=== PATIENT | male | born 1970 | race Caucasian/White ===

== ENCOUNTER 2019-06-10 14:35 | Outpatient (REF) | payer MEDICARE, SELFPAY ==
[2019-06-10 21:33] LABS: ALT 19 U/L (16-63); AST 13 U/L (15-37); Alkaline Phosphatase 90 U/L (46-116); Anion Gap 6.5 mmol/L (3-11); BUN 13 mg/dL (7-18); Bilirubin, Total 0.4 mg/dL (0.2-1.0); CO2 30.5 mmol/L (21.0-32.0); CREATININE 1.01 mg/dL (0.70-1.30); Calcium 9.2 mg/dL (8.5-10.1); Chloride 104 mmol/L (98-107); Glucose 88 mg/dL (74-106); Potassium 4.4 mmol/L (3.5-5.1); Sodium 141 mmol/L (136-145); Total Protein 7.1 g/dL (6.4-8.2)
== END 2019-06-10 14:55 ==
LOC: NCHCN 14:35
PROVIDERS: Visit Provider Internal Medicine
DX: R03.0 Elevated blood-pressure reading, without diagnosis of hypertension (principal)
CPT/HCPCS: 80053

== ENCOUNTER 2020-04-21 17:44 | Outpatient (REF) | payer MEDICARE, SELFPAY | END 2020-04-21 18:04 | LOC: NCHCN 17:44 | PROVIDERS: Visit Provider Nurse Practitioner Family | DX: R05 Cough (principal) | CPT/HCPCS: U0003 ==

== ENCOUNTER 2020-04-28 14:21 | Outpatient (REF) | payer MEDICARE, SELFPAY ==
[2020-05-03 10:53] LABS: Patient Race White; SARS-CoV-2 RNA Undetected (Undetected); SARS-CoV-2 Specimen Source Nasal
== END 2020-04-28 14:41 ==
LOC: NCHCN 14:21
PROVIDERS: PCP Internal Medicine; Visit Provider Internal Medicine
DX: R05 Cough (principal)
CPT/HCPCS: U0003

== ENCOUNTER 2020-06-02 20:19 | Outpatient (REF) | payer MEDICARE, SELFPAY ==
--- OUTSIDE RECORDS SUMMARY | 2020-06-02 20:22 | XMS_ITS ---
:1970 Author Care Team Providers Name Role Phone FAUZIA ENGLE MD Textile Stylist Unavailable Allergies Code Code System Name Reaction Severity Status Onset Latex, Itching ? Active ? Natural Rubber [id number] RxNorm Nickel Rash ? Active ? Notes: propylene stitches Medications Name Status Start Date Stop Date ? ? alfuzosin ER 10 mg tablet,extended Active ? Not available release 24 hr amoxicillin 875 mg-potassium Completed ? 05/2019 clavulanate 125 mg tablet cephalexin 500 mg capsule Completed ? 2018 GaviLyte-G 236 gram-22.74 gram-6.74 Active ? Not available gram-5.86 gram oral solution levofloxacin 500 mg tablet Completed ? 03/18 1 (one) Tablet: daily levofloxacin 750 mg tablet Completed ? 01/28 Narcan 4 mg/actuation nasal spray Active ? Not available promethazine 25 mg tablet Active ? Not av ailable simvastatin 40 mg tablet Active ? Not tiara ilable tamsulosin 0.4 mg capsule Active ? Not av ailable triamcinolone acetonide 0.5 % topical Active ? Not available cream zolpidem 10 mg tablet Active ? Not availa ble Problems Name Status Onset Date Source ? Tomography - Chest Abnormal Active 03/18/2019 ? Tobacco Dependence Syndrome Active ? Hist ory Placentography Abnormal Unknown ? History Procedure by Method Unknown ? History Procedures Date Name Performed by ? 11/17/2004 Hernia Repair Information not avai lable 03/26/2018 CT, Chest, W/o Contrast [facility] (Internal) [address] [place] [address] (Work [address]) 01/28/2019 CT, Chest, W/o Contrast [facility] (Internal) [address] [place] [address] (Work [address]) 01/28/2019 CT, Chest, W/o Contrast [facility] (Internal) [address] [place] [address] ([address]) 03/18/2019 CT, Chest, W/o Contrast [facility] (Internal) [address] [place] [address] ([address] (Work Place) 03/18/2019 CT, Chest, W/o Contrast [facility] (Internal) [address] [place] [address] (Work [address]) Results Lab Results None recorded. Past Encounters 03/18/2020 Tobacco Dependence Syndrome; Tomography - Chest Abnormal Fauzia Egnle MD: [address] [place] [address], Ph. 03/18/2019 Tomography - Chest Abnormal Fauzia Engle MD: [address] [place] [address], Ph. 01/28/2019 Tomography - Chest Abnormal Fauzia Engle MD: [address] [place] [address], Ph. Social History Tobacco Smoking Status Former Smoker Notes: quit Vaccine List Vaccine Type influenza, injectable, quadrivalent 03/19/2018 influenza, injectable, quadrivalent, pre servative free 03/18/2020 Plan of Care Reminders Provider Appointments None ? ? recorded. Lab None ? ? recorded. Referral None ? ? recorded. Procedures None ? ? recorded. Surgeries None ? ? recorded. Imaging None ? ? recorded. Vitals 03/18/2020 03:00PM Follow Up 30 Weight Blood Pressure 104 kg 128/82 mm[Hg] 03/18/2019 03:30PM Follow Up 30 Height Weight BMI Blood Pressure 187.96 cm 106.2 kg 30.1 kg/m2 114/73 mm[Hg] 01/28/2019 02:00PM Follow Up 30 Height Weight BMI Blood Pressure 187.96 cm 104.4 kg 29.6 kg/m2 134/84 mm[Hg] 03/26/2018 03:00PM Follow Up 30 Height Weight BMI Blood Pressure 187.96 cm 99 kg 28 kg/m2 140/80 mm[Hg] 08/23/2017 Height Weight Blood Pressure 187.96 cm 110.68 kg 130/70 mm[Hg] 08/09/2017 Height Weight Blood Pressure 187.96 cm 109.77 kg 110/80 mm[Hg]
--- OUTSIDE RECORDS SUMMARY | 2020-06-02 20:22 | XMS_ITS | Encounter Summary ---
:1970 Author Care Team Providers Name Role Phone Fauzia Engle MD Pediatric Genetic Counselor Unavailable Reason for Visit imaging follow up Assessment and Plan 1. Tobacco dependence syndrome Complete and immediate smoking cessation is recommended and discussed. He already has nicotine patches and lozenge s and will get started soon.More than 3 minutes was spent on this topic ? Fluarix Quad [id number] (PF ) 60 mcg (15 mcg x 4)/0.5 mL IM syringe 2. Tomography - chest abnormal The previously seen horseshoe- shaped right upper lobe nodular density is stable in size. This has been now followed for almost 3 years. Likely this is part of the previous scar from the pneumo ishmael. This, per se, does not need further follow-up. Thankfully now he is smoke-free. He should stop vaping as well. He has a strong family history of early age lung cancer. Previous large spiculated mass in the ri ght lower lobe with central cavitation was likely related to an infection or stomach acid aspiration, and by now has completely resolved. Acid reflux treatment conservative measu res were discussed in detail with the patient and his , including avoiding acid a food altogether, not eating or drinking at least 1 to 2 hours before bedtime anything, continuing with his Prevacid twice a day, propping up his upper torso 30 to 45 degrees in bed, avoiding carbonated beverages and alcoholic beverages altogether. Continue smoking cessation is recommende d He will get his flu shot here today. Once he turns 53, we will evaluate him f or possibly qualify for low-dose CT screening for lung cancer. Discussion Note More than 25 minutes were spent wit h the patient , more than 50% of the time counselingj Patient educational handouts: No information available. Plan of Care Reminders Provider Appointments None ? ? recorded. Lab None ? ? recorded. Referral None ? ? recorded. Procedures None ? ? recorded. Surgeries None ? ? recorded. Imaging None ? ? recorded. Medications Name Start Date ? ? alfuzosin ER 10 mg tablet,extended release 24 hr ? GaviLyte-G 236 gram-22.74 gram-6.74 gram-5.86 gram ora l solution ? Narcan 4 mg/actuation nasal spray ? promethazine 25 mg tablet ? simvastatin 40 mg tablet ? tamsulosin 0.4 mg capsule ? triamcinolone acetonide 0.5 % topical cream ? zolpidem 10 mg tablet ? Medications Administered None recorded. Vitals Weight Blood Pressure 104 kg 128/82 mm[Hg] Results Lab Results None recorded. Allergies Code Code System Name Reaction Severity Onset Latex, Natural Itching ? ? Rubber [id number] RxNorm Nickel Rash ? ? Notes: propylene stitches Problems Name Status Onset Date Source ? Tomography - Chest Abnormal Active 03/18/2019 ? Tobacco Dependence Syndrome Active ? Hist ory Procedures Date Name Performed by ? 11/17/2004 Hernia Repair Information not avai lable Vaccine List Vaccine Type influenza, injectable, quadrivalent 03/19/2018 influenza, injectable, quadrivalent, pre servative free 03/18/2020 Social History Tobacco Smoking Status Former Smoker Notes: quit Exposure to Asbestos Y Exposure to Chemicals or Toxins N Tobacco Use Former smoker Pets? Y Notes: 1 cat, 3 d ogs Blind or serious difficulty seeing N Language Difficulties No Notes: [place] Citizen Smoking - patient's current pack 30ormorepackyears years? Deaf or serious difficulty hearing N Most Recent Tobacco Use Screening 03/26/2018 Advance directive N Exposure to Silica N Tobacco-years of use 19 Notes: smoked tw o packs per day, recently down t o 1/2 ppd Family History Relation Problem Onset Age of Age Notes Father No current problems (No Information) N/A (No Notes) or disability Mother No current problems (No Information) N/A (No Notes) or disability Functional Status No Impairment. Past Encounters 03/18/2020 Tobacco Dependence Syndrome; Tomography - Chest Abnormal Fauzia Engle MD: [address] [place] [address], Ph. History of Present Illness Note: <p>Patient is a 49-year-old man who comes in for follow up on chest CT scan that was done earlier today. This was done to follow-up on a large spiculated mass in the right lower lobe on 01/28/2019. After that, he was treated with Levaquin and has had his symptomatic GERD under much better cont rol. He takes Prevacid.</p><p>
</p><p>Follow-up chest CT on 03/18/2019 showed only minimal groundglass opacity with a slight solid core in the place of the previous cavitary mass. He now had a one-year follow-up CT.
</p><p>He is doing very well. He is remaining smoke-free but he is vaping weed. He is making his own vape juice and growing his own weight.
</p><p>He has no fevers or chills, no weight loss or loss of appetite.</p><p>He would like to get the flu shot today
</p><p>
</p><p>He got sick over 2016 with fevers, chills, coughing with bloody sputu m. He was treated with Augmentin for 5 days. Chest x-ray showed right middle lobe infiltrate. He had, at that time, marked shortness of breath and wheezing. He got better after the antibiotics.</p><p>At [place] time, 2016 he had a bad sinus infection and was treated with another 5 days of Augmentin. Since then, clinically he has been doing well, no coughing, no fevers, no chills, no shortness of breath, no night sweats.</p><p>
</p><p>No other new complai nts.</p><p>
</p><p>Social history: He vapes pot.
</p><p>He quit smoking in March,. Before that, he smoked for a year, prior to that, he quit for 10 years. He has a 21 pack- year smoking history. 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 This was done under a jaquez with fairly good ventilation. This went on for 7 years. 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 He then worked at [employer]& lt;/p><p>
</p><p>family history: Very strong history of lung cancer. His father at age 56 and grandfather in his 60s of lung cancer. They were both smokers.</p> Review of Systems ? Notes: <p>As above
</p> Physical Exam ? Notes: <p>Middle-aged man in no acu te distress</p><p>chest: bilateral air entry, with clear breath sounds, no crep itation, crackles, wheezes.</p><p>Heart, S1, S2 normal</p><p>Neuro; A/O x 3</p><p>Extremities: No edema, clubbing, cyanosis
</p>
[2020-06-02 21:23] LABS: Anion Gap 10.3 mmol/L (3-11); BUN 15 mg/dL (7-18); CO2 26.7 mmol/L (21.0-32.0); CREATININE 1.13 mg/dL (0.70-1.30); Calcium 8.8 mg/dL (8.5-10.1); Chloride 105 mmol/L (98-107); Glucose 112 mg/dL (74-106); Potassium 4.3 mmol/L (3.5-5.1); Sodium 142 mmol/L (136-145)
== END 2020-06-02 20:39 ==
LOC: NCHCN 20:19
PROVIDERS: PCP Internal Medicine; Visit Provider Internal Medicine
DX: I10 Essential (primary) hypertension (principal)
CPT/HCPCS: 80048

== ENCOUNTER 2021-04-22 22:14 | Outpatient (REF) | payer MEDICARE, SELFPAY ==
[2021-04-22 21:54] LABS: BUN 21 mg/dL (7-18); CREATININE 1.1 mg/dL (0.70-1.30)
== END 2021-04-22 22:15 | disposition home or self-care (01) ==
LOC: NCHCN 22:14
PROVIDERS: PCP Internal Medicine; Visit Provider Internal Medicine
DX: M54.59 Other low back pain (principal)
CPT/HCPCS: 84520; 82565

== ENCOUNTER 2022-07-22 13:41 | Outpatient (REF) | payer MEDICARE, SELFPAY ==
[2022-07-22 14:38] LABS: ALT 33 U/L (16-63); AST 24 U/L (15-37); Alkaline Phosphatase 106 U/L (46-116); Anion Gap 6.4 mmol/L (3-11); BUN 14 mg/dL (7-18); Bilirubin, Total 0.4 mg/dL (0.2-1.0); CO2 29.6 mmol/L (21.0-32.0); CREATININE 1.1 mg/dL (0.70-1.30); Calcium 9.3 mg/dL (8.5-10.1); Chloride 104 mmol/L (98-107); Estimated GFR 79.77 (mL/min/1.73m2); Glucose 118 mg/dL (74-106); Potassium 4.5 mmol/L (3.5-5.1); Sodium 140 mmol/L (136-145); Total Protein 7.5 g/dL (6.4-8.2)
== END 2022-07-22 13:42 | disposition home or self-care (01) ==
LOC: NCHCN 13:41
PROVIDERS: PCP Internal Medicine; Visit Provider Internal Medicine
DX: I10 Essential (primary) hypertension (principal); E78.5 Hyperlipidemia, unspecified; Z01.818 Encounter for other preprocedural examination
CPT/HCPCS: 80053

== ENCOUNTER 2022-10-12 23:21 | Outpatient (REF) | payer MEDICARE, SELFPAY ==
[2022-10-12 22:11] LABS: HCT 49.2 % (40.0-50.0); HGB 16.6 g/dL (13.5-17.5); MCH 30.6 pg (27.0-33.0); MCHC 33.7 % (32.0-36.0); MCV 91 fL (80-95); Platelet Count 307 10^3/uL (130-400); RBC 5.43 10^6/uL (4.36-5.78); RDW 12.9 % (11.8-14.1); RDW-SD 42.8 fL; WBC 7.73 10^3/uL (4.4-10.8)
[2022-10-12 23:38] LABS: Ferritin 109 ng/mL (26-388); Vitamin B12 418 pg/mL (193-986)
[2022-10-14 08:50] LABS: Lyme Ab w Rflx to Lyme Confirm Negative (Negative)
== END 2022-10-12 23:22 | disposition home or self-care (01) ==
LOC: NCHCN 23:21
PROVIDERS: PCP Internal Medicine; Visit Provider Internal Medicine
DX: R73.03 Prediabetes (principal); R53.83 Other fatigue; G47.61 Periodic limb movement disorder
CPT/HCPCS: 85027; 82607; 82728; 83735; 86618

== ENCOUNTER 2023-07-21 15:09 | Outpatient (REF) | payer MEDICARE, SELFPAY ==
[2023-07-21 14:26] LABS: Bilirubin Negative (Negative); Blood Negative (Negative); Clarity Clear (Clear); Glucose Negative (Negative); Ketones Negative (Negative); Leukocyte Esterase Negative (Negative); Nitrite Negative (Negative); Urobilinogen 0.2 mg/dL (Up to 0.2)
[2023-07-21 14:27] LABS: HCT 44.4 % (40.0-50.0); HGB 14.8 g/dL (13.5-17.5); MCH 30.5 pg (27.0-33.0); MCHC 33.3 % (32.0-36.0); MCV 92 fL (80-95); MPV 9.5 fL (8.0-11.0); Platelet Count 316 10^3/uL (130-400); RBC 4.85 10^6/uL (4.36-5.78); RDW 13.5 % (11.8-14.1); RDW-SD 46.1 fL; WBC 6.71 10^3/uL (4.4-10.8)
[2023-07-21 14:45] LABS: ALT 29 U/L (16-63); AST 21 U/L (15-37); Albumin 3.7 g/dL (3.4-5.0); Alkaline Phosphatase 81 U/L (46-116); Anion Gap 5.4 mmol/L (3-11); BUN 16 mg/dL (7-18); Bilirubin, Total 0.4 mg/dL (0.2-1.0); CO2 29.6 mmol/L (21.0-32.0); Calcium 9.4 mg/dL (8.5-10.1); Chloride 104 mmol/L (98-107); Estimated GFR 88.88 (mL/min/1.73m2); Glucose 102 mg/dL (74-106); Potassium 4.8 mmol/L (3.5-5.1); Sodium 139 mmol/L (136-145); Total Protein 7.4 g/dL (6.4-8.2)
[2023-07-21 15:04] LABS: Hemoglobin A1C 5.6 % (<5.7)
== END 2023-07-21 15:10 | disposition home or self-care (01) ==
LOC: NCHCN 15:09
PROVIDERS: PCP Internal Medicine; Visit Provider Internal Medicine
DX: R03.0 Elevated blood-pressure reading, without diagnosis of hypertension (principal); R73.03 Prediabetes; M40.36 Flatback syndrome, lumbar region; Z01.818 Encounter for other preprocedural examination; Z01.812 Encounter for preprocedural laboratory examination
CPT/HCPCS: 80053; 85027; 81003; 83036

== ENCOUNTER 2023-08-28 16:05 | Outpatient (REF) | payer MEDICARE, SELFPAY ==
[2023-08-28 18:19] LABS: HCT 33.3 % (40.0-50.0); MCV 90 fL (80-95); MPV 8.7 fL (8.0-11.0); RBC 3.71 10^6/uL (4.36-5.78); RDW-SD 58.9 fL; WBC 13.48 10^3/uL (4.4-10.8)
[2023-08-28 18:33] LABS: ALT 25 U/L (16-63); AST 13 U/L (15-37); Albumin 2.8 g/dL (3.4-5.0); Alkaline Phosphatase 249 U/L (46-116); Anion Gap 7.4 mmol/L (3-11); BUN 16 mg/dL (7-18); Bilirubin, Total 0.2 mg/dL (0.2-1.0); CO2 30.6 mmol/L (21.0-32.0); CREATININE 0.9 mg/dL (0.70-1.30); Calcium 9.5 mg/dL (8.5-10.1); Chloride 102 mmol/L (98-107); Estimated GFR 100.86 (mL/min/1.73m2); Glucose 110 mg/dL (74-106); Potassium 5.2 mmol/L (3.5-5.1); Sodium 140 mmol/L (136-145); Total Protein 7.6 g/dL (6.4-8.2)
[2023-08-28 19:14] LABS: Platelet Count 1201 10^3/uL (130-400)
== END 2023-08-28 16:06 | disposition home or self-care (01) ==
LOC: LBN 16:05
PROVIDERS: PCP Internal Medicine; Visit Provider Internal Medicine Infectious Disease
DX: J15.8 Pneumonia due to other specified bacteria (principal)
CPT/HCPCS: 80053; 85027

== ENCOUNTER → 2023-10-27 01:02 | Outpatient (CLI) | payer MEDICARE, SELFPAY ==
--- NOTE | 2023-10-27 09:01 | ST.MBS_ITS ---
Date of Service Date of service: 10/27/23 Time of Service: 09:01 Modified Barium Swallow Study Findings: Video fluoroscopic Swallowing Evaluation (VFSE) / Modified Barium Swallow Study (MBSS) Speech Language Pathology Report Patient referred for VFSE/MBSS from Lamar Brown given suspected aspiration pneumonia. HPI & Patient report of function: Olaf is a 53 y/o M with GERD, JESUS, emphysema and nicotine dependence, lung nodules, who was referred by PCP for instrumental swallow evaluation in setting of suspected aspiration pna, and reporting intermittent oral-pharyngeal dysphagia symtpoms. This date patient reports minimal pharyngeal stasis or coughing with thin liquids or solid foods. He does endorse night reflux. Sometimes he regurgitates, including nasal regurgitation and sensation of aspiration overnight. At times he will cough up pieces of food when lying down for sleep. This does not happen during or after meals or throughout the day. He endorses a history of Fonseca's esophagus and has biopsies taken every 3-4 years. IMPRESSIONS: Swallow safety is largely peserved; swallow efficiency is impaired primarily in the esophageal phase. Overall safe/WFL oral-pharyngeal swallow function, characterized by mild delays in oral prep/transit and pharyngeal initiation, as well as mild reduced hyo- laryngeal and epiglottic motility - altogether resulting only in mild vallecular residue for dry solids and shallow/flash penetration of thin liquids into the laryngeal vestibule but largely resolved by swallow completion. No aspiration occurred during the study. No UES stricture or narrowing is noted. Moderate esophageal dysphagia is noted on esophageal survey, with significant retention of mildly thickened liquid in distal esophagus, also with retrograde bolus flow below the UES. This is resolved with thin liquid wash (water), though suspect patient likely continued with retention of water. On prior trial, also noting mild retrograde flow of thin liquid from stomach back into distal esophagus. If aspiration remains a concern for pneumonia risk, highly suspect esophageal etiology vs oral-pharyngeal dysphagia. Diet modification is indicated to improve esophageal clearance; non-oral nutri tion is not indicated. Specialist referrals:? GI ? RECOMMENDATIONS: Diet Texture Recommendation:? IDDSI LEVEL SOLIDS 6-Soft/bite size - chew well and add sauces/gravies for esopahgeal clearance. VS 5-Minced/moist LIQUIDS 0-Thin Liquids Please see further details at?[email or web address] MEDICATIONS Whole with 0-Thin Liquids Diet texture modification is per patient's preference; please adjust diet textures at patient's discretion & collaboration with care team. Do not alter medications (e.g., cut)? without advice from your MD or pharmacist. Risk Management Strategies:? Behavioral reflux precautions, including upright position during + 90 mins after meals, inclined sleeping posture, smaller/more frequent meals throughout the day. Small bites, approx 15atd28mb Small sips, approx 10 mL Alternate solids/liquids as able Control risk factors for aspiration pneumonia via (a) thorough oral hygiene & (b) maintaining physical mobility as tolerated PLAN: No further CANE WEIGHER follow-up is indicated at this time. Please re-refer as needed. ----- OBJECTIVE Videofluoroscopic Swallow Evaluation (VFSE/MBSS) was conducted in the lateral and [id number] projection by Speech-Language Pathologist, in collaboration with Radiologist, to evaluate oropharyngeal swallow function. Anatomic view under fluoroscopy: Noting hardware from spinal surgery. PO Barium Contrast Trials Oral barium water-soluble contrast was administered as follows: IDDSI Level 0 Varibar thin liquid (40% w/v) IDDSI Level 2 Varibar nectar thick/mildly thick liquid (40% w/v) IDDSI Level 4 Varibar pudding/pureed/extremely thick (40% w/v) IDDSI Level 7 Regular Solid: 1/2 fig raza coated in 3 mL Varibar pudding 13 mm barium tablet taken with Thin Liquids. MBSImP Component Scores: COMPONENT Scale SCORE 1 Lip closure (0-4) 1 Resulted in interlabial escape, without progression to anterior lip 2 Hold Position (0-3) 0 Maintained a cohesive bolus between tongue to palatal seal 3 Bolus Preparation (0-4) 1 Resulted in slow prolonged chewing /mashing with complete re-collection 4 Bolus Transport (0-4) 1 Demonstrated delayed initiation of tongue motion 5 Oral Residue (0-4) 2 Was a collection on oral structures 6 Swallow Initiation (0-4) 3 Occurred when the bolus head was in the pyriform sinuses 7 Soft Palate Elevation (0-4) 0 Resulted in no bolus between soft palate and the pharyngeal wall 8 Laryngeal Elevation (0-3) 1 Was decreased with partial superior movement of thyroid cartilage/partial approximation of arytenoids to epiglottic petiole 9 Anterior Hyoid Motion (0-2) 1 Demonstrated partial anterior movement 10 Epiglottic Movement (0-2) 1 Resulted in partial inversion 11 Laryngeal Closure (0-2) 1 Was incomplete with narrow a column of air/contrast in laryngeal vestibule 12 Pharyngeal Stripping Wave (0-2) 0 Was present and complete 13 Pharyngeal Contraction (0-3) 0 Was complete 14 PES Opening (0-3) 0 Was completely distended and complete duration with no obstruction of flow 15 Tongue Base Retraction (0-4) 1 Allowed a trace column of contrast or air between tongue base and pharyngeal wall 16 Pharyngeal Residue (0-4) 2 Was a collection of residue within or on pharyngeal structures 17 Esophageal Clearance (0-4) 2 Resulted in esophageal retention with retrograde flow below pharyngoesophageal segment Results: COMPONENT Scale SCORE 1 Oral Score (0-18) 7 2 Pharyngeal Score (0-29) 6 3 Esophageal Score (0-4) 2 Penetration-Aspiration Scale: COMPONENT Scale SCORE 1 Thin liquid (1-8) 2 Contrast entered the airway, remained above the vocal folds, and was ejected from the airway. 2 [place] thick (1-8) 2 Contrast entered the airway, remained above the vocal folds, and was ejected from the airway. 3 Honey thick (1-8) NA 4 Pudding thick (1-8) 1 Contrast did not enter the airway 5 Cookie (1-8) 1 Contrast did not enter the airway Trialed Compensatory Strategies & Outcome: Maneuvers Successful (+) Unsuccessful (-) Postures Successful (+) Unsuccessful (-) 3 second Preparatory Set? ? Chin Tuck Posture? ? Cough? ? Posterior Head tilt? Reflexive? Cued? Throat Clear? ? Head Tilt to? Reflexive? Left? Cued? Right? ? Saliva swallow? ?+ Head Turn/ Rotate to? ? Supraglottic Swallow? Left? ? Super- supraglottic Swallow? Right? ? Bolus Modifications Successful (+) Unsuccessful (-) Delivery/Alternating Consistencies ? Follow with Liquid Wash + ? Follow with Solid Bolus? Delivery/Via Straw? ? Reduced Volume? ?+ Reduced Rate of Intake? ?+ Increased Viscosity? ?+/- Other:?? ? Thank you for allowing us to take part in this patient's care. Please feel free to contact the [facility] Speech Language Pathology Department with any questions/concerns.
--- NOTE | 2023-10-27 09:40 | DI.RAD_ITS ---
Exam(s) RF MODIFIED SPEECH BA SWALLOW TECHNIQUE: Modified barium swallow was performed in conjunction with speech pathology. CONTRAST MATERIAL: Multiple consistencies of oral barium contrast were administered. COMPARISON: none FINDINGS: Laryngeal penetration was observed with thin liquids. There is no evidence of aspiration with any co nsistency. The barium tablet passed into the stomach without delay. Speech pathology report to follow. IMPRESSION: No evidence of aspiration. Laryngeal penetration with thin liquids.. RADIATION DOSE DELIVERED: danika Becerra=21.7 mGy
[2023-10-27] MEDS: Barium Sulfate 700 MG TAB PO (09:43)
[2023-10-27] MEDS: Barium Sulfate Oral Paste 40% W/V 230 ML TUBE PO (09:48)
[2023-10-27] MEDS: Barium Sulfate 81% w/w for Oral Suspension 148 GM BTL PO (09:49)
[2023-10-27] MEDS: Barium Sulfate 40% W/V 240 ML BTL PO (09:50)
== END ==
PROVIDERS: PCP Internal Medicine; Visit Provider Internal Medicine
DX: J18.9 Pneumonia, unspecified organism (principal); R13.10 Dysphagia, unspecified
CPT/HCPCS: 92610; 74221

== ENCOUNTER → 2024-02-08 13:47 | Outpatient (BNVA) | payer MEDICARE, SELFPAY | PROVIDERS: PCP Internal Medicine; Referring Provider Internal Medicine; Visit Provider Surgery | DX: K21.9 Gastro-esophageal reflux disease without esophagitis; Z87.19 Personal history of other diseases of the digestive system; G89.29 Other chronic pain | CPT/HCPCS: 99204 ==

== ENCOUNTER 2024-03-25 14:53 | Outpatient (REF) | payer MEDICARE, SELFPAY ==
[2024-03-25 15:33] LABS: HGB 15.4 g/dL (13.5-17.5); MCH 29.6 pg (27.0-33.0); MCHC 32.8 % (32.0-36.0); MCV 90 fL (80-95); MPV 9.9 fL (8.0-11.0); Platelet Count 308 10^3/uL (130-400); RBC 5.21 10^6/uL (4.36-5.78); RDW 12.9 % (11.8-14.1); RDW-SD 42.6 fL; WBC 7.22 10^3/uL (4.4-10.8)
[2024-03-25 15:46] LABS: ALT 42 U/L (16-63); AST 34 U/L (15-37); Albumin 3.8 g/dL (3.4-5.0); Alkaline Phosphatase 124 U/L (46-116); Anion Gap 8.2 mmol/L (3-11); BUN 12 mg/dL (7-18); Bilirubin, Total 0.38 mg/dL (0.2-1.0); CO2 27.8 mmol/L (21.0-32.0); CREATININE 1.1 mg/dL (0.70-1.30); Calcium 9.5 mg/dL (8.5-10.1); Chloride 106 mmol/L (98-107); Estimated GFR 79.28 (mL/min/1.73m2); Glucose 114 mg/dL (74-106); Potassium 4.2 mmol/L (3.5-5.1); Sodium 142 mmol/L (136-145); Total Protein 7.9 g/dL (6.4-8.2)
== END 2024-03-25 14:54 | disposition home or self-care (01) ==
LOC: NCHCN 14:53
PROVIDERS: PCP Internal Medicine; Visit Provider Internal Medicine
DX: R03.0 Elevated blood-pressure reading, without diagnosis of hypertension (principal)
CPT/HCPCS: 80053; 85027

== ENCOUNTER 2024-04-02 06:09 | Day surgery (SDC) | payer MEDICARE, SELFPAY ==
--- NOTE | 2024-04-01 16:07 | W.PM.HP.N ---
Date of service: 04/02/24 Time of Service: 07:29 Assessment and Plan Assessment and plan (1) Opioid dependence: Status: Acute (2) Hypertensive disorder: Status: Chronic (3) Hyperlipidemia: Status: Acute (4) Prediabetes: Status: Acute (5) Obesity: Status: Chronic (6) GERD (gastroesophageal reflux disease): Status: Chronic Assessment and plan: Patient is here today for EGD. We discussed what he could expect during the procedure, postprocedurally, recovery time and risks. Informed consent is obtained for the procedural (explained in simple layman's terms that the pt. and/or family could understand) explaining risks vs benefits and alternatives to the procedure and consequences if we do not do the procedure and need/rational for the procedure. Risks include but are not limited to: bleeding, infection, perforation of esophagus, stomach, colon, small intestines, bronchus or trachea, or PTX. This would necessitate emergency surgery to repair the damage w/ possible ostomy; and other associated complications w/ the required surgery. Also complications of anesthesia including aspiration, WV/CVA/. And patient agrees to procedure today. We will do biopsies today. Patient will be sent a letter with the results of the biopsies. If he is still having Fonseca's then a 3-year surveillance is recommended. (7) Emphysema, unspecified: Status: Acute (8) Obstructive sleep apnea (adult) (pediatric): Status: Acute (9) History of Fonseca's esophagus: (10) Spinal stenosis of lumbar region: History of Present Illness Narrative: Patient is here today for EGD for surveillance of Fonseca's and poorly controlled reflux.??? They not having any chest pain or shortness of breath, currently.? They are not experiencing any fever or chills.? They deny any productive cough or upper respiratory tract infection signs or symptoms.? They are not having abdominal pain, or nausea and vomiting.? They have not had any changes in medications, past medical history or past surgical history since previously being seen in the office. They have not had any accidents or have been in the ER since the clinic pre-operative evaluation. ??I reviewed the procedure with the patient today, including risks and benefits of the procedure, and what they could expect at home for recovery.? All questions are answered to the patient?s satisfaction today, and they are stable to proceed with the proposed procedure. Protonix is working better to control acid s/s. 1) Depression: (2) Anxiety: (3) Opioid dependence: (4) Hypertensive disorder: (5) Hyperlipidemia: (6) Prediabetes: (7) Obesity: (8) GERD (gastroesophageal reflux disease): (9) Adenomatous polyp of colon: (10) Urinary retention: (11) Emphysema, unspecified: (12) Multiple lung nodules: (13) Obstructive sleep apnea (adult) (pediatric): (14) Periodic limb movement disorder: (15) Insomnia: (16) Gait abnormality: (17) Spinal stenosis of lumbar region: (18) History of Fonseca's esophagus: 1. Fonseca's Esophagus. Given his history of Fonseca's esophagus, an EGD with biopsies is recommended to monitor for any progression to dysplasia. The EGD is scheduled for February 2024 due to recent back surgery and the need to avoid infection risks. He has been informed about the importance of regular monitoring to prevent progression to esophageal cancer. Continue with lifestyle modifications: no alcohol, tobacco products, Aspirin or NSAID's (ibuprofen, Motrin, Naprosyn, aleve, etc), soda pop/any carbonated beverages, caffeine (including tea & chocolate), and acidic foods, (tomatoes, citrus, onions, peppermints) spicy or fried/fatty foods. Do not lie down for 30 minutes after eating, and do not eat 2 hours prior to bedtime. Avoid wearing tight fitting clothing/ belts This document was created with voice activated software and may contain errors 2. Gastroesophageal Reflux Disease (GERD). He reports persistent heartburn and reflux symptoms despite current medication. A prescription for Protonix has been provided to replace Prevacid and Pepcid, as long-term use of the same medication can reduce its effectiveness. He is advised to avoid caffeine and carbonated drinks. A referral for a pH probe and manometry test at [facility] has been made to evaluate his candidacy for antireflux surgery. If the tests indicate normal esophageal function, he may be considered for Owen fundoplication surgery. 3. Hiatal Hernia. He has a known hiatal hernia contributing to his reflux symptoms. Surgical options, including Owen fundoplication, have been discussed. The necessity of the pH probe and manometry test to assess esophageal function before surgery has been emphasized. We discussed how this test is done and the importance of performing this test. This was ordered at . There is so far a 6-month wait time. They will call to schedule this procedure. He is advised to follow up with the results of the tests to determine the next steps. 4. Lung Infection. He has a history of lung infection likely due to aspiration. He is advised to continue sleeping elevated to reduce the risk of aspiration. No current symptoms of infection are reported. 5. Medication Management. He has been on Prevacid for over 23 years and recently started Pepcid. Both medications are taken twice a day. A prescription for Protonix has been provided to replace these medications. He is no longer on phentermine. Informed consent is obtained for the procedural (explained in simple layman's terms that the pt. and/or family could understand) explaining risks vs benefits and alternatives to the procedure and consequences if we do not do the procedure and need/rational for the procedure. Risks include but are not limited to: bleeding, infection, perforation of esophagus, stomach, colon, small intestines, bronchus or trachea, or PTX. This would necessitate emergency surgery to repair the damage w/ possible ostomy; and other associated complications w/ the required surgery. Also complications of anesthesia including aspiration, WV/CVA/. This document was created with voice activated software and may contain errors. 25 mins spent in direct pt care and 20 in non face to face time (19) Chronic low back pain: (20) Former smoker: (21) Hx of hernia repair: (22) History of lumbar fusion: (23) Nicotine dependence: (24) Elevated blood pressure reading without diagnosis of hypertension: New RN: pt here for consult for EGD, has hx of Fonseca's, last EGD was [address] Cody, originally diagnosed by Dr. Kathy Machado in , pt states he takes a PPI but it is not listed on his medication list will check with his PCP --[facility], [place] ? There is no family history of any esophageal/gastric cancer.? Patient has not had any weight loss.? Their appetite is good.? The patient has been eating: The patient is a 53-year-old male who presents today for an EGD for Fonseca's esophagus. He has been under observation for several years due to his condition. His current medication regimen includes Prevacid, prescribed by Dr. Hui, and Pepcid, both taken twice daily. He has been on Prevacid for over 23 years. He experiences constant heartburn and indigestion. He describes a sensation of gas pushing upwards, which sometimes leads to coughing. He does not consume much caffeine but drinks two diet Mountain Dews and a significant amount of water daily. He takes Arthrotec and aspirin but avoids Tylenol as it upsets his stomach. He has never undergone a pH or manometry study. An incident of suspected aspiration led to a hospital stay due to a lung infection. He reports waking up at night and now sleeps in an elevated position. He does not experience any nausea or vomiting. A sleep study revealed moderate sleep apnea, and he was recommended to use a machine by the [employer]. He has declined surgery for his reflux. He has no history of heart attack or stroke. He is allergic to propylene sutures. He underwent back surgery in 2002, which involved accessing the front of his spine through his stomach and the back of his spine. This resulted in a large seroma and hernia, which were repaired with synthetic mesh. However, he rejected the mesh, leading to 13 different operations and a prolonged healing period. He had another back surgery on 07/27/2023, involving fusion from T8 to his sacrum with rods and pedicle screws. In 08/2023, he was hospitalized with a lung infection, suspected to be due to food aspiration. He was quarantined for peptic ulcers and was coughing up blood. He was on erythromycin for 2 months. He recently started medication for high blood pressure. He is not diabetic. He was previously on phentermine for weight loss, which helped him reduce to 200 pounds. However, due to concerns about his blood pressure, his primary care physician discontinued the phentermine. His blood pressure did not change significantly after stopping the medication. He has gained weight since stopping phentermine. He has no issues with anesthesia. He has a hiatal hernia and scarring. He recalls an episode of vomiting blood, for which he visited the ER. He does not have any nasal issues and has never broken his nose. He used cocaine in the . PPI was switched to Protonix. dr talbert at [facility]. pepcid and prevacid. Stomach medications: Swallowing: Reflux/Wet Burps: Nausea/vomiting: no Epigastric pain: Chest pain/burning: constantly Melena/blood in stools/anemia: no Constipation or diarrhea: constipation Dental issues: poor Nocturnal problems: yes Prior head/neck/esophageal surgery or radiation. sleeps elevated. Coffee: no Soda/Tea: diet mt dew x2 a day ASA/NSAID?s: arthrotec daily Tobacco: former THC: daily oral ETOH: no ph/manometry never sleep apenea + They deny any problems with anesthesia in the past. Anesthesia: general (without airway) Previous surgical intolerances: No Previous surgical complications: No Pulmonary risk factors: Planned procedure: Yes Sleep apnea risks: No COPD/Asthma/Smoker: Hx of WV/CVA: no Hx of Cardiac conditions: no Can climb one flight of stairs (12-13 steps) in less than 30 seconds without stopping and without symptoms: Yes The surgery proposed for this patient is: low risk Active cardiac conditions: none Active risk factors: none ASA (acetylsalicylic acid): not used Beta blockers: not used Kidneys: no concerns DM: no mi/cva no phentermine- off ?Patient needs to be Natural airway general because of:? Medical conditions/airway control/ ?Pain control? Meds/NKDA/PMHx/PSHx: see [facility] for care back sx and mesh rejection - 2002 back sx 2004 removed the mesh. took 2 yrs to heal the wound. anethesia- no problems. jul 2023 T8- sacrum fusion august had lung infection due to aspiration. 11/09 aryngeal penetration was observed with thin liquids. There is no evidence of aspiration with any consistency. The barium tablet passed into the stomach without delay. Speech pathology report to follow. IMPRESSION: No evidence of aspiration. Laryngeal penetration with thin liquids.. Review of Systems All systems reviewed & are unremarkable except as noted in HPI and below PFSH All Active Problems Urinary retention (Acute) Anxiety (Chronic) Insomnia (Acute) Depression (Chronic) Nicotine dependence (Acute) Bunion, left foot (Acute) Hyperlipidemia (Acute) Hypertensive disorder (Chronic) Prediabetes (Acute) Obesity (Chronic) Nausea & vomiting (Acute) Gait abnormality (Acute) Constipation (Acute) Opioid dependence (Acute) Chronic low back pain (Chronic) Adenomatous polyp of colon (Acute) Rectal fistula (Acute) GERD (gastroesophageal reflux disease) (Chronic) Pain in left shoulder (Acute) Periodic limb movement disorder (Acute) Obstructive sleep apnea (adult) (pediatric) (Acute) Elevated blood pressure reading without diagnosis of hypertension (Acute) Multiple lung nodules (Acute) Emphysema, unspecified (Acute) Medical History Spinal stenosis of lumbar region (~08/2023) Former smoker quit> 1yr History of Fonseca's esophagus Surgical History History of lumbar fusion L4-6 (third back operation) 12/01/2003 Hx of hernia repair lt abd wall hernia (repair of surgical hernia) 11/17/04 History of spinal fusion (~2001) History of back surgery (~07/2023) T8-sacrum Family History Other Lung cancer Social History Smoking/Tobacco Use Status: Former Tobacco Use Quit Date: 06/19/17 Pack-years: 45 Smoking risk assessment performed?: Yes Alcohol Intake: former Drug use: Occasionally Substance use type: marijuana Housing: house Do you feel safe at home: Yes Do you feel safe in your relationship?: Yes Meds Allergies and Home Medications Allergies Allergy/AdvReac Type Severity Reaction Status Date / Time adhesive tape Allergy Intermediate Skin Rash Verified 04/02/24 06:31 petrolatum,white (From Allergy Intermediate Skin Rash Verified 04/02/24 06:31 Petroleum Jelly) chromium AdvReac Severe Topical Verified 04/02/24 06:31 Irritation dihydroxyacetone (From AdvReac Mild contact Verified 04/02/24 06:31 Chromelin) dermatits latex AdvReac Topical Verified 04/02/24 06:31 Irritation propolene sutures AdvReac Intermediate Unknown Uncoded 04/02/24 06:31 Home Medications ?Medication ?Instructions ?Recorded ?Confirmed ?Type cyclobenzaprine mg tablet 10 mg PO BID 03/11/17 04/02/24 History diclofenac 75 mg-misoprostol 200 2 tab PO DAILY 03/11/17 03/29/24 History mcg tablet,immediate,delayed release (Arthrotec) duloxetine 60 mg capsule,delayed 60 mg PO DAILY 03/11/17 04/02/24 History release (Cymbalta) Medical Marijuana See Rx Instructions .Route 04/14/23 04/02/24 History DIRECTED albuterol sulfate 90 mcg/actuation 2 puff inhalation .Q4-6H PRN 04/14/23 04/02/24 History aerosol inhaler simvastatin 40 mg tablet 40 mg PO DAILY 04/14/23 04/02/24 History triamcinolone acetonide 0.5 % 1 applic topical BID 04/14/23 04/02/24 History topical cream diclofenac sodium 1 % topical gel 2 g topical BID 01/22/24 04/02/24 History gabapentin 600 mg tablet 300 mg PO TID 01/22/24 04/02/24 History ketamine topical BID 01/22/24 02/13/24 History lidocaine 5 % topical patch 1 patch topical DAILY 01/22/24 04/02/24 History losartan 25 mg tablet 25 mg PO DAILY 01/22/24 04/02/24 History methadone 10 mg tablet 10 mg PO TID PRN 01/22/24 04/02/24 History naloxone 4 mg/actuation nasal spray 1 spray intranasal Q2M 01/22/24 04/02/24 History promethazine 12.5 mg tablet 25 mg PO PRN PRN 01/22/24 04/02/24 History sennosides 8.6 mg tablet (senna) 8.6 mg PO BID 01/22/24 04/02/24 History pantoprazole 40 mg tablet,delayed 40 mg PO BID #60 tabs 02/08/24 04/02/24 Rx release (Protonix) Exam Narrative Exam Narrative: PHYSICAL EXAM GENERAL APPEARANCE: Alert, healthy appearance, oriented, x 3,? in no acute distress HYDRATION: Well hydrated HEAD, EYES, EARS, NECK, THROAT: Head is normocephalic, pupils equal, round, reactive to light and accommodation, ocular movement intact, sclera clear and no jaundice. ?Dentitio LUNGS: normal respiration/normal chest excursion. ?Clear to auscultation bilaterally. ?No wheeze. ?HEART: Regular rate and rhythm. no murmurs ABDOMEN: soft and non-tender to palpation.? Normal bowel sounds.? Time Spent Time spent with Patient: <40 minutes Time was spent: preparing to see the patient(eg.review tests), obtaining and/or reviewing separately otained hiistory, ordering medications,tests, procedures, referring, communicating with other health occasional caregiver, indepentently interpreting results, counseling the patient, care coordination and other
--- NOTE | 2024-04-01 16:13 | W.PM.ENDDOP ---
Date of service: 04/02/24 Time of Service: 08:31 Endoscopy Report DATE OF PROCEDURE: 04/02/24 PRE-OP DIAGNOSIS: Fonseca's esophagus POST-OP DIAGNOSIS: other (Mild duodenitis/mild gastritis/chronic Fonseca's) SURGEON: Kate Peña ANESTHESIA TYPE: General:No Airway ESTIMATED BLOOD LOSS: 2 PATHOLOGY: other COMPLICATIONS: None DISPOSITION: same day PROCEDURE DESCRIPTION: Informed consent was obtained from the pt; explaining the benefits and Risks: bleeding, infections, perforations {which could require surgery or antibiotics and prolonged hospital stay}, or ostomy, and complications of anaesthesia, varinder aspiration). The patient was take to the procedure room and placed in a supine position. Monitors were applied and a time out was done. The patients name, date of , procedure type, allergies to medications and metal in their body was reviewed. A bite block was placed and the patient was sedated. Once sedated and comfortable an Olympus gastroscope (see RN notes for scope #) was advanced through the oropharynx which was grossly normal, and passed into the esophagus. The proximal and mid-esophagus were normal. The distal esophagus does not show any: dilation/strictures/varices/erosions or ulcers/bleeding noted. He has a small 2 cm type sliding hiatal hernia. He has evidence of chronic longstanding Fonseca's. There were 3 or 4 islands of tissue that are less than 1 cm. He is x 3 tongues of Fonseca's that are greater than 1 cm. There is no active esophagitis or ulceration. The scope was advanced into the stomach and through the pylorus into the duodenum the duodenum was noted to be mild duodenitis. Biopsies were done of the duodenal bulb.. The scope was retracted back into the stomach and biopsies were taken of the antrum. There is mild gastritis radiating from the antrum in a striped fashion there were no gastropathy/ ulcers/masses noted. The scope was retroflexed. The cardia and fundus were noted to be normal. There [] a hiatal hernia noted. The scope was retracted back into the esophagus and biopsies were done of the GE junction (in all 4 quadrants) and distal esophagus (2cm above the GE junction) to rule out Fonseca's. All specimens are retrieved and no bleeding was noted. The Z line was irregular. The GE junction was at 38m. The scope was removed and the patient was woken up and taken back to [facility] in stable condition.
--- NOTE | 2024-04-01 16:14 | PDOC.DSDIS_ITS ---
Date of service: 04/02/24 Time of Service: 08:43 Discharge Plan Disposition Patient Disposition: Home Condition: Good Discharge Details Reason For Visit: egd Attending Provider: Kate Peña Primary Care Provider: Lamar Brown Home Meds and New Rx's Prescriptions: Continued pantoprazole [Protonix] 40 mg tablet,delayed release (DR/EC) 40 mg PO BID Qty: 60 12RF Medical Marijuana See Rx Instructions .ROUTE DIRECTED Rx Instructions: as directed; simvastatin 40 mg tablet 40 mg PO DAILY triamcinolone acetonide 0.5 % cream 1 applic topical BID albuterol sulfate 90 mcg/actuation HFA aerosol inhaler 2 puff inhalation .Q4-6H PRN gabapentin 600 mg tablet 300 mg PO TID promethazine 12.5 mg tablet 25 mg PO PRN PRN methadone 10 mg tablet 10 mg PO TID PRN diclofenac sodium 1 % gel 2 g topical BID lidocaine 5 % adhesive patch,medicated 1 patch topical DAILY Rx Instructions: leave on most painful area for up to 12 hrs losartan 25 mg tablet 25 mg PO DAILY naloxone 4 mg/actuation spray,non-aerosol 1 spray intranasal Q2M Rx Instructions: administer 1 spray into both nostrils as needed sennosides [senna] 8.6 mg tablet 8.6 mg PO BID ketamine 100 mg/mL topical BID Rx Instructions: apply a small amount topically twice daily prn for pain diclofenac-misoprostol [Arthrotec 75] 1 TAB tablet,IR,delayed rel,biphasic 2 tab PO DAILY cyclobenzaprine 10 MG tablet 10 mg PO BID duloxetine [Cymbalta] 60 MG capsule,delayed release(DR/EC) 60 mg PO DAILY Discharge Instructions Additional Instructions: Post EGD Instruction ?You had anesthesia for your EGD/stomach scope today.? For your safety, please do the following for the next twenty-four (24) hours: Do Not operate a motor vehicle (car, truck, motorcycle, etc.) Do Not drink alcoholic beverages or use any recreational drugs for the first 24 hours or while taking pain medications. The medications in your body may have a reaction that can be dangerous. Do Not make any important decisions or sign any important papers You have just had a gastroscopy (EGD) or upper GI tract examination. It is important for your smooth recovery that you carefully follow the recommendations below. Do not hesitate to call if any questions should arise about your anesthesia, condition, or care. -Symptoms you may experience during the next 24 hours: ?1. Mild abdominal pain or excessive gas or a bloated feeling which improves with rest, liquids, eating? slightly, and walking as tolerated. 2. Drowsiness and/or forgetfulness because of the medications you were given. 3. A sore throat which you can treat with throat lozenges or by gargling with salt water 4-5 times a day. 4. Redness at the site of your IV which you can treat with warm compresses. SPECIAL INSTRUCTIONS: 1. You may resume your previous diet in one hour. We recommend a light meal to start, then progress as tolerated. 2. Restart regular medications in one hour. 3. No aspirin or non-steroidal containing medication for 24 hrs. 4. No lifting over 20 pounds or strenuous activity for the first 24 hours after your procedure. After 24 hours there are no restrictions on your activity, but you may feel fatigued for a few days. -Findings: doudentitis gastritis chronic Fonseca's and hiatal hernia -stop smoking -pj probe and manometry -Medications: protonix BID -Continue to follow lifestyle modifications: No alcohol, tobacco products, Aspirin or NSAID's (ibuprofen, Motrin, Naprosyn, aleve, etc).? Try to limit/avoid:? soda pop/any carbonated beverages, caffeine (including tea & chocolate), and acidic foods, (tomatoes, citrus, onions, peppermints) spicy or fried/fatty foods. Do not lie down for 30 minutes after eating, and do not eat 2 hours prior to bedtime. Avoid wearing tight fitting clothing/ belts. Follow up: -My office will send a letter with the results of your biopsy?s in 2-3wks time. Call the office at [phone] (Office) or [phone] (Hospital), or go to the ER right away if you notice any of the followin. Vomiting blood and /or ?coffee ground? material. ?2. Worsening of abdominal pain or cramping. ?3. Trouble with breathing, cough, and/or fever (temperature above 101.5 F). 4. Increasing pain with swallowing. ?5. Chest pain. 6. Any new symptoms. 7. Worsening of the redness at the IV site Activity:: see above Diet:: see above Discharge Orders Discharge Orders: Discharge Order (Routine); Ordered 04/02/24 Ordered By: Kate Peña DS: Diagnosis Discharge Diagnosis (1) Opioid dependence: Status: Acute (2) Hypertensive disorder: Status: Chronic (3) Hyperlipidemia: Status: Acute (4) Prediabetes: Status: Acute (5) Obesity: Status: Chronic (6) GERD (gastroesophageal reflux disease): Status: Chronic (7) Emphysema, unspecified: Status: Acute (8) Obstructive sleep apnea (adult) (pediatric): Status: Acute (9) History of Fonseca's esophagus: Asessment and Plan: Patient is seen and examined after they are endoscopy.? Patient has minimal sore throat.? They have been able to tolerate liquids.? They do not have any nausea vomiting.? They are not having any chest pain or shortness of breath.? They have been able to pass gas and are not having any abdominal pain or distention.? They have not vomited any blood.? The vital signs have been stable-see nursing notes. We discussed findings on their endoscopy. We reviewed the importance of lifestyle modification-see discharge instructions We reviewed any new medications that the patient may be prescribed-see discharge instructions Patient will either be sent a letter with the biopsy results or follow-up in the office-see discharge instructions. Patient was given explicit instructions to follow-up regarding post endoscopy- refer to discharge Patient verbalized understanding and discharged in stable and satisfactory condition.? See nursing notes. (10) Spinal stenosis of lumbar region:
[2024-04-02 06:08] VITALS: BP 109/77; PULSE 90; RESP 16; TEMP 36; O2SAT 95
[2024-04-02] MEDS: Lactated Ringers 1,000 ML 80 ML IV (06:45)
[2024-04-02] MEDS: Normal Saline Flush 10 ML SYR IV (07:01)
--- NOTE | 2024-04-02 07:06 | ANES.PREOP_ITS ---
General Info Date of Service Date Performed: 04/02/24 Height: 5 ft 9 in Weight: 103.1 kg Body Mass Index (BMI): 33.5 Surgical Procedure: Operation Date: 04/02/24 07:35 Proposed Procedure Side Surgeon p Gastroscopy Kate Peña, Meds Allergies and Home Medications Allergies Allergy/AdvReac Type Severity Reaction Status Date / Time adhesive tape Allergy Intermediate Skin Rash Verified 04/02/24 06:31 petrolatum,white (From Allergy Intermediate Skin Rash Verified 04/02/24 06:31 Petroleum Jelly) chromium AdvReac Severe Topical Verified 04/02/24 06:31 Irritation dihydroxyacetone (From AdvReac Mild contact Verified 04/02/24 06:31 Chromelin) dermatits latex AdvReac Topical Verified 04/02/24 06:31 Irritation propolene sutures AdvReac Intermediate Unknown Uncoded 04/02/24 06:31 Home Medication ?Medication ?Instructions ?Recorded cyclobenzaprine 10 mg tablet 10 mg PO BID 03/11/17 diclofenac 75 mg-misoprostol 200 2 tab PO DAILY 03/11/17 mcg tablet,immediate,delayed release (Arthrotec) duloxetine 60 mg capsule,delayed 60 mg PO DAILY 03/11/17 release (Cymbalta) Medical Marijuana See Rx Instructions .Route 04/14/23 DIRECTED albuterol sulfate 90 mcg/actuation 2 puff inhalation .Q4-6H PRN 04/14/23 aerosol inhaler simvastatin 40 mg tablet 40 mg PO DAILY 04/14/23 triamcinolone acetonide 0.5 % 1 applic topical BID 04/14/23 topical cream diclofenac sodium 1 % topical gel 2 g topical BID 01/22/24 gabapentin 600 mg tablet 300 mg PO TID 01/22/24 ketamine topical BID 01/22/24 lidocaine 5 % topical patch 1 patch topical DAILY 01/22/24 losartan 25 mg tablet 25 mg PO DAILY 01/22/24 methadone 10 mg tablet 10 mg PO TID PRN 01/22/24 naloxone 4 mg/actuation nasal spray 1 spray intranasal Q2M 01/22/24 promethazine 12.5 mg tablet 25 mg PO PRN PRN 01/22/24 sennosides 8.6 mg tablet (senna) 8.6 mg PO BID 01/22/24 pantoprazole 40 mg tablet,delayed 40 mg PO BID #60 tabs 02/08/24 release (Protonix) Current Visit Medications: Current Medications Generic Name Dose Route Start Last Admin Trade Name Freq PRN Reason Stop Dose Admin Hyoscyamine Sulfate 0.125 mg 04/02/24 04:03 Hyoscyamine 0.125 Mg Sl/Oral/Chew SL 05/02/24 04:02 DIRECTED PRN Ringer's Solution 1,000 mls @ 80 mls/hr 04/02/24 06:00 04/02/24 06:45 IV 05/01/24 23:59 80 mls/hr INFUSION AVEL Administration IV Miscellaneous Supplies 1 each 04/02/24 06:00 Iv Access IV 05/01/24 23:59 DIRECTED AVEL Ondansetron HCl 4 mg 04/02/24 04:03 Ondansetron 4 Mg/2 Ml Vial IVP 05/02/24 04:02 Q4H PRN PRN Nausea / Vomiting Sodium Chloride 0 ml 04/02/24 06:00 04/02/24 07:01 Normal Saline Flush 10 Ml Syr IV 05/01/24 23:59 10 ml PRN PRN Administration Sodium Chloride 0 ml 04/02/24 06:00 Normal Saline 10 Ml Vial IJ 05/01/24 23:59 DIRECTED PRN Sterile Water 0 ml 04/02/24 06:00 Water,Injection,Sterile 10 Ml Vial IJ 05/01/24 23:59 DIRECTED PRN PFSH Active Problems Active Problems: Problem Status Onset Code Urinary retention Acute R33.9 Anxiety Chronic F41.9 Insomnia Acute G47.00 Depression Chronic F32.A Nicotine dependence Acute F17.200 Bunion, left foot Acute M21.612 Hyperlipidemia Acute E78.5 Hypertensive disorder Chronic I10 Prediabetes Acute R73.03 Obesity Chronic E66.9 Nausea & vomiting Acute R11.2 Gait abnormality Acute R26.9 Constipation Acute K59.00 Opioid dependence Acute F11.20 Chronic low back pain Chronic M54.50, G89.29 Adenomatous polyp of colon Acute D12.6 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 GERD (gastroesophageal reflux disease) Chronic K21.9 Pain in left shoulder Acute M25.512 Periodic limb movement disorder Acute G47.61 Obstructive sleep apnea (adult) (pediatric) Acute G47.33 Elevated blood pressure reading without diagnosis of hypertension Acute R03.0 Multiple lung nodules Acute R91.8 Emphysema, unspecified Acute J43.9 Medical History Medical History Spinal stenosis of lumbar region (~08/2023) Former smoker quit> 1yr History of Fonseca's esophagus Surgical History Surgical History History of lumbar fusion L4-6 (third back operation) 12/01/2003 Hx of hernia repair lt abd wall hernia (repair of surgical hernia) 11/17/04 History of spinal fusion (~2001) History of back surgery (~07/2023) T8-sacrum Tobacco Smoking/Tobacco Use Status: Former Tobacco Use Alcohol Alcohol Intake: former Substance Use Substance use: Occasionally Substance use type: marijuana Vital Signs and Lab Results Vital Signs Most Recent Vital Signs in EMR: Most Recent Vital Signs Temp Pulse Resp BP Pulse Ox 36 C L 90 16 109/77 95 04/02/24 06:08 04/02/24 06:08 04/02/24 06:08 04/02/24 06:08 04/02/24 06:08 Lab Results Blood Type / Crossmatch: No Data to Display Complete Blood Count: White Blood Count 7.22 10^3/uL (4.4-10.8) 03/25/24 12:00 Red Blood Count 5.21 10^6/uL (4.36-5.78) 03/25/24 12:00 Hemoglobin 15.4 g/dL (13.5-17.5) 03/25/24 12:00 Hematocrit 47.0 % (40.0-50.0) 03/25/24 12:00 Platelet Count 308 10^3/uL (130-400) 03/25/24 12:00 Complete Metabolic Panel: Sodium 142 mmol/L (136-145) 03/25/24 12:00 Potassium 4.2 mmol/L (3.5-5.1) 03/25/24 12:00 Chloride 106 mmol/L (98-107) 03/25/24 12:00 Carbon Dioxide 27.8 mmol/L (21.0-32.0) 03/25/24 12:00 BUN 12 mg/dL (7-18) 03/25/24 12:00 Creatinine 1.1 mg/dL (0.70-1.30) 03/25/24 12:00 Est GFR (CKD-EPI 2020) 79.28 (mL/min/1.73m2) 03/25/24 12:00 Calcium 9.5 mg/dL (8.5-10.1) 03/25/24 12:00 Albumin 3.8 g/dL (3.4-5.0) 03/25/24 12:00 Glucose 114 mg/dL (74-106) H 03/25/24 12:00 Liver Function Panel: Alanine Aminotransferase (ALT/SGPT) 42 U/L (16-63) 03/25/24 12: 00 Aspartate Amino Transf (AST/SGOT) 34 U/L (15-37) 03/25/24 12:00 Coagulation Panel: No Data to Display Cardiac Panel: No Data to Display Arterial Blood Gas: No Data to Display Venous Blood Gas: No Data to Display Pancreas Panel: No Data to Display Thyroid Panel: No Data to Display Infectious Disease: No Data to Display Blood Cultures: No Data to Display Toxicology Panel: No Data to Display Anesthesia Assessment and Plan Anesthesia History Personal History: No History of Anesthesia Complications Family History: No Family History of Anesthesia Complications Exercise Tolerance Exercise Tolerance: Metabolic Equivalents>4 Pertinent Negatives Pertinent Negatives: No Symptoms of GERD Cardiac & Pulmonary Exam Cardiac Exam: Normal S1/S2 Heart Sounds Pulmonary Exam: Clear Bilateral Breath Sounds Implantable Cardiac Device Does patient have a Pacemaker or an ICD?: No Airway Exam Known Difficult Airway: No Mallampati Class: 2 Mouth Opening: Normal (> 3cm) Thyromental Distance: Greater than 3 cm Facial Hair: Full [place]ck Range of Motion: Full ROM Neck Circumference: Normal Teeth Condition: Normal Dentition ASA Classification ASA Score: ASA 2 Emergency Case?: No NPO Status NPO Status: NPO Clears >2 hours, Solids >8 hours Anesthesia Plan Resuscitation Status: Full Code Anesthesia Technique: General Anesthesia Airway Planned: Natural Airway Monitors Used: Standard Monitors
[2024-04-02 07:08] VITALS: BMI 33.5
--- NOTE | 2024-04-02 07:43 | STOM_PTH ---
PATIENT: Olaf Gage LOC: [facility] U#:[id number] AGE/SX: 53/M ROOM: RE04/02/[address]: Kate Peña : 1970 BED: DIS: 04/02/2024 SPEC #: [id number] RECD: 04/02/24 16:48 STATUS: EVERT RE #: [id number] ABIGAIL: 04/02/24 07:[address]: Kate Peña DEPT: Surgical Specimen RECD BY: Dayami Berry ENTERED: 04/02/24 16:49 SP TYPE: STOMACH OTHR DR: Lamar Brown Tissues: 1 - BIOPSY BOWEL 2 - STOMACH BIOPSY 3 - STOMACH BIOPSY 4 - ESOPHAGUS BIOPSY 5 - ESOPHAGUS BIOPSY Procedures: GROSS AND MICRO LEVEL 4 Comments: [id number]
[2024-04-02 08:00] VITALS: BP 93/54; PULSE 80; RESP 18; TEMP 36.8; O2SAT 93
[2024-04-02 08:07] VITALS: BP 88/57; PULSE 80; RESP 18; O2SAT 92
--- NOTE | 2024-04-02 08:09 | W.ANESPOSTOP ---
Postoperative Evaluation Date, Time and Location Date Performed: 04/02/24 Time Performed: 08:09 Patient Location: Day Surgery Unit Vital Signs Most Recent Imported Vital Signs: Most Recent Vital Signs Temp Pulse Resp BP Pulse Ox 36.8 C 80 18 88/57 L 92 04/02/24 08:00 04/02/24 08:07 04/02/24 08:07 04/02/24 08:07 04/02/24 08:07 Pain Score Most Recent Pain Score: Most Recent Pain Score Pain Level 0 04/02/24 06:08 Assessment Mental Status: Awake (Alert & Oriented to Patient Baseline) Airway and Respiratory Function: Patent airway with normal (patient baseline) respiratory exam Cardiovascular Function: Hemodynamically Stable Hydration Status: Adequately Hydrated Nausea & Vomiting: No Nausea or Vomiting Pain: Pt. Denies Any Pain Peripheral Nerve Block: Patient did not receive a nerve block
[2024-04-02 08:10] VITALS: BP 85/68; PULSE 81; RESP 18; TEMP 36.6; O2SAT 93
[2024-04-02 08:13] VITALS: BP 94/63; PULSE 83; RESP 18; O2SAT 94
[2024-04-02 08:29] VITALS: BP 94/67; PULSE 80; RESP 16; TEMP 36.6; O2SAT 95
== END 2024-04-02 09:04 | disposition home or self-care (01) ==
LOC: SUR 06:09
PROVIDERS: PCP Internal Medicine; Visit Provider Surgery
PROC: 0DJ68ZZ Inspection of Stomach, Via Natural or Artificial Opening Endoscopic (ICD-10-PCS; CPT 43235; principal; 2024-04-02 07:30)
DX: K21.9 Gastro-esophageal reflux disease without esophagitis (principal); Z87.19 Personal history of other diseases of the digestive system; K44.9 Diaphragmatic hernia without obstruction or gangrene; K22.70 Barrett's esophagus without dysplasia; K29.80 Duodenitis without bleeding; K31.89 Other diseases of stomach and duodenum; K31.A14 Gastric intestinal metaplasia without dysplasia, involving the cardia; K22.89 Other specified disease of esophagus
CPT/HCPCS: 43239; 88305; J2704

== ENCOUNTER 2024-06-20 16:44 | Outpatient (REF) | payer MEDICARE, SELFPAY ==
[2024-06-20 21:38] LABS: HCT 44.4 % (40.0-50.0); HGB 14.5 g/dL (13.5-17.5); MCH 30.5 pg (27.0-33.0); MCHC 32.7 % (32.0-36.0); MCV 93 fL (80-95); MPV 9.8 fL (8.0-11.0); Platelet Count 265 10^3/uL (130-400); RBC 4.76 10^6/uL (4.36-5.78); RDW 13.1 % (11.8-14.1); RDW-SD 44.9 fL; WBC 10.58 10^3/uL (4.4-10.8)
[2024-06-20 21:57] LABS: Anion Gap 3.9 mmol/L (3-11); BUN 16 mg/dL (7-18); CO2 31.1 mmol/L (21.0-32.0); CREATININE 1.1 mg/dL (0.70-1.30); Calcium 8.9 mg/dL (8.5-10.1); Chloride 107 mmol/L (98-107); Estimated GFR 78.79 (mL/min/1.73m2); Glucose 101 mg/dL (74-106); Potassium 4.2 mmol/L (3.5-5.1); Sodium 142 mmol/L (136-145); TSH (W/Ref FT4) 0.49 uIU/mL (0.36-3.74)
== END 2024-06-20 16:45 | disposition home or self-care (01) ==
LOC: NCHCN 16:44
PROVIDERS: PCP Internal Medicine; Visit Provider Internal Medicine
DX: R00.0 Tachycardia, unspecified (principal)
CPT/HCPCS: 80048; 85027; 84443

== ENCOUNTER 2024-11-29 12:57 | Outpatient (REF) | payer MEDICARE, SELFPAY ==
[2024-11-29 21:12] LABS: HCT 46.4 % (40.0-50.0); HGB 15.2 g/dL (13.5-17.5); MCH 30.2 pg (27.0-33.0); MCHC 32.8 % (32.0-36.0); MCV 92 fL (80-95); MPV 10.4 fL (8.0-11.0); Platelet Count 240 10^3/uL (130-400); RBC 5.03 10^6/uL (4.36-5.78); RDW 13.6 % (11.8-14.1); RDW-SD 46.4 fL; WBC 6.13 10^3/uL (4.4-10.8)
[2024-11-29 21:23] LABS: ALT 33 U/L (16-63); AST 23 U/L (15-37); Albumin 3.8 g/dL (3.4-5.0); Alkaline Phosphatase 123 U/L (46-116); Anion Gap 5.7 mmol/L (3-11); BUN 19 mg/dL (7-18); Bilirubin, Total 0.4 mg/dL (0.2-1.0); CO2 29.3 mmol/L (21.0-32.0); CREATININE 1.1 mg/dL (0.70-1.30); Calcium 8.9 mg/dL (8.5-10.1); Calculated LDL 78 mg/dL (<100); Chloride 104 mmol/L (98-107); Cholesterol 148 mg/dL (<200); Estimated GFR 78.79 (mL/min/1.73m2); Glucose 105 mg/dL (74-106); HDL Cholesterol 58 mg/dL (>or=40); Potassium 4.2 mmol/L (3.5-5.1); Sodium 139 mmol/L (136-145); Total Protein 7.6 g/dL (6.4-8.2); Triglyceride 62 mg/dL (<150)
[2024-11-29 21:46] LABS: Hemoglobin A1C 5.6 % (<5.7)
[2024-12-02 11:18] LABS: PSA, Screening 0.1 ng/mL (<=3.5)
== END 2024-11-29 12:58 | disposition home or self-care (01) ==
LOC: NCHCN 12:57
PROVIDERS: PCP Internal Medicine; Visit Provider Internal Medicine
DX: I10 Essential (primary) hypertension (principal); R73.03 Prediabetes; Z12.5 Encounter for screening for malignant neoplasm of prostate; E78.5 Hyperlipidemia, unspecified
CPT/HCPCS: 80053; 80061; 84153; 85027; 83036

== ENCOUNTER 2025-01-15 14:04 | Outpatient (REF) | payer MEDICARE, SELFPAY ==
[2025-01-15 20:36] LABS: Abs Immature Grans 0.06 10^3/uL (0.0-0.06); HCT 45.0 % (40.0-50.0); HGB 14.6 g/dL (13.5-17.5); Immature Grans % 0.6 %; MCH 29.6 pg (27.0-33.0); MCHC 32.4 % (32.0-36.0); MCV 91 fL (80-95); MPV 9.1 fL (8.0-11.0); Platelet Count 464 10^3/uL (130-400); RBC 4.93 10^6/uL (4.36-5.78); RDW 13.0 % (11.8-14.1); RDW-SD 43.8 fL; WBC 10.71 10^3/uL (4.4-10.8)
[2025-01-15 21:19] LABS: Anion Gap 6.2 mmol/L (3-11); BUN 14 mg/dL (7-18); CO2 28.8 mmol/L (21.0-32.0); Calcium 9.3 mg/dL (8.5-10.1); Chloride 104 mmol/L (98-107); Estimated GFR 78.79 (mL/min/1.73m2); Glucose 97 mg/dL (74-106); Potassium 4.7 mmol/L (3.5-5.1); Sodium 139 mmol/L (136-145); Vitamin B12 642 pg/mL (193-986)
== END 2025-01-15 14:05 | disposition home or self-care (01) ==
LOC: NCHCN 14:04
PROVIDERS: PCP Internal Medicine; Visit Provider Internal Medicine
DX: R26.89 Other abnormalities of gait and mobility (principal)
CPT/HCPCS: 80048; 82607; 85025